=== PATIENT | female | born 1970 | race Caucasian/White ===

== ENCOUNTER 2021-10-25 18:17 | Emergency (ER) | payer OTHER, SELFPAY ==
[2021-10-25] VITALS (13 sets, daily range): BP systolic 167–184; BP diastolic 89–95; PULSE 82–97; RESP 14–32; TEMP 36.4; O2SAT 97–99
--- NOTE | ~2021-10-25 | XR_ITS ---
XR ankle LT 2V 10/25/2021 18:45 Indication: Left ankle pain after fall from porch Procedure: 2 views left ankle Comparison: 12/06/2004 Findings: There is a comminuted displaced distal fibular diaphyseal fracture. There is also a probabl e fracture involving the lateral margin of the distal tibia. There is lateral dislocation of the talu s with respect to the tibia. Moderate soft tissue swelling. There is a degenerative calcaneal entheso phyte. Impression: 1: Comminuted displaced and angulated distal fibular diaphyseal fracture. 2: Lateral dislocation of the talus with respect to the tibia with probable fracture of the lateral margin of the tibia. Reviewed, dictated and finalized at location [facility] Impression: 1: Comminuted displaced and angulated distal fibular diaphyseal fracture. 2: Lateral dislocation of the talus with respect to the tibia with probable fr acture of the lateral margin of the tibia.
--- NOTE | 2021-10-25 18:42 | ED.GENADULT ---
HPI - General Adult General Chief complaint: Extremity Injury, Lower <Carlos Alberto Sims PA-C - Last Filed: 10/25/21 20:10> Stated complaint: FALL- L ANKLE DEFORMITY <Carlos Alberto Sims PA-C - Last Filed: 10/25/21 20:10> Time Seen by Provider: 10/25/21 18:31 <Carlos Alberto Sims PA-C - Last Filed: 10/25/21 20:10> Source: patient <ANA Cardenas Last Filed: 10/25/21 20:10> Mode of arrival: EMS <Carlos Alberto Sims PA-C - Last Filed: 10/25/21 20:10> Limitations: no limitations <ANA Carednas Last Filed: 10/25/21 20:10> History of Present Illness HPI narrative: Patient is a 50-year-old female presented with chief complaint of injury to the left ankle that she sustained just prior to arrival. Patient reports that she thought she was on the last step but was not so she fell down 2 steps inverting her left ankle. Patient reports she has significant pain to the area. She states that her last meal was at noon when her last drink was approximately 2 hours ago. Patient reports prior injury to the left ankle but does not recall if it was a sprain or fracture. Patient states she is not up-to-date on her tetanus. Patient denies any allergies to any antibiotics. Patient has been on anticoagulants. Patient with history significant for hypertension, morbid obesity. Patient was given 100 mcg of fentanyl via EMS during transport. She reports the ankle is becoming increasingly more painful. Patient denies head impact or any other areas of injury. <ANA Cardenas Last Filed: 10/25/21 20:10> Related Data Allergies/adverse reactions: Allergies Allergy/AdvReac Type Severity Reaction Status Date / Time No Known Allergies Allergy Unknown Unverified 10/06/08 17:54 NKDA Allergy Unknown Uncoded 05/03/03 14:38 NKFA Allergy Unknown Uncoded 05/03/03 14:38 <ANA Cardenas Last Filed: 10/25/21 20:10> Review of Systems Review of Systems: CONSTITUTIONAL: Denies fever, chills, or sweats. EYES: Denies visual changes, redness, or discharge. ENT: Denies rhinorrhea, congestion, sore throat, or otalgia. CARDIOVASCULAR: Denies chest pain, palpitations, or edema. RESPIRATORY: Denies cough or dyspnea. GASTROINTESTINAL: Denies abdominal pain, nausea, vomiting, or diarrhea. GENITOURINARY: Denies dysuria or hematuria. SKIN: Open wound denies rash or itching. MUSCULOSKELETAL: Reports left ankle injury/deformity denies back pain, joint pain, or myalgia. NEUROLOGIC: Denies headache, numbness, dizziness, or weakness. PSYCHIATRIC: Denies anxiety or depression. <Carlos Alberto Sims PA-C - Last Filed: 10/25/21 20:10> Exam Narrative: GENERAL: Morbidly obese, shaking, appears to be in discomfort. HEAD: Normocephalic, atraumatic. EYES: PERRLA and EOMI. CHEST: Clear to auscultation. No respiratory distress. No wheezes rales or rhonchi HEART: Regular rate and rhythm. No murmur heard. Normal peripheral pulses. ABDOMEN: Soft, nontender, nondistended, normal active bowel sounds. EXTREMITIES: Left ankle obviously deformed- everted. Open wound to medial aspect. Not actively bleeding. Pulses strong and intact. No discomfort with proximal palpation. SKIN: Open wound to medial aspect of ankle. Warm, dry, no rash. NEURO: No focal deficits. Alert and oriented x3. PSYCH: Normal mood and affect. <Carlos Alberto Sims PA-C - Last Filed: 10/25/21 20:10> Course WELL LOGGING OPERATOR MUD ANALYSIS/PA Physician Supervision Patient presented via ambulance after a fall down two steps, with open talotibial dislocation, compound fibular fracture. Patient is neurovascularly intact. IV access is obtained, patient was given IV antibiotics, tetanus was updated, she was given pain medication. Patient is hypertensive, likely secondary to significant pain from the injury. Patient will be splinted for comfort after discussion with attending at [facility]. Patient is requesting to be transferred there. For this patient encounter, I reviewed the WELL LOGGING OPERATOR MUD ANALYSIS or PA tony
[2021-10-25] MEDS: HYDROmorphone HCL INJ (*CRX) 1 MG/ML SYR 0.5 MG IV PUSH (19:08)
[2021-10-25] MEDS: ONDANSETRON INJ 4 MG/2 ML VIAL IV PUSH (19:08)
[2021-10-25] MEDS: SODIUM CHLORIDE 0.9% IV 1,000 ML 999 ML IV CONT (19:10)
[2021-10-25] MEDS: ceFAZolin 2 GM/D5W 50 ML 2 GM/50 ML BAG IVPB (19:27)
[2021-10-25] MEDS: TETANUS,DIPHTHERIA,AC PERTUSSIS ADULT (0.5 ML) BOOSTRIX IM (19:27)
[2021-10-25 19:28] LABS: Basophils Absolute Auto 0.1 K/mm3 (0.0-0.1); Basophils Percent Auto 0.4 % (0.2-1.2); Eosinophils Absolute Auto 0.1 K/mm3 (0-0.3); Eosinophils Percent Auto 0.3 % (0-4.4); Hematocrit 48.6 % (37.0-47.0); Hemoglobin 14.9 g/dL (12.0-15.0); Immature Granulocyte Absolute 0.19 K/mm3 (0.00-0.031); Immature Granulocyte Percent A 1.1 % (0-0.5); Lymphocytes Absolute Auto 1.43 K/mm3 (0.9-3.2); Mean Corpuscular HGB Conc 30.7 g/dl (32-36); Mean Corpuscular Hemoglobin 25.6 pg (26-34); Mean Corpuscular Volume 83.4 fl (80-100); Mean Platelet Volume 10.9 fl (7.4-10.4); Monocytes Percent Auto 5.3 % (2.6-8.5); Neutrophils Absolute Auto 15.2 K/mm3 (1.3-6.7); Neutrophils Percent Auto 84.9 % (45.5-73.1); Platelet Count Result 335 k/mm3 (150-375); Red Blood Count 5.83 M/mm3 (4.2-5.4); Red Cell Distribution Width 19.3 % (11.5-14.5); White Blood Count 17.9 K/mm3 (4.5-10.0)
[2021-10-25 19:32] LABS: Alanine Aminotransferase 30 U/L (4-35); Albumin Level 4.3 g/dL (3.5-5.1); Alkaline Phosphatase 143 U/L (38-126); Anion Gap 5 mmol/L (8-16); Aspartate Amino Transferase 24 U/L (14-36); Bilirubin,Total 0.4 mg/dL (0.2-1.3); Blood Urea Nitrogen 12 mg/dL (7-17); Calcium 9.2 mg/dL (8.4-10.2); Carbon Dioxide 32 mmol/L (22-30); Chloride 99 mmol/L (98-107); Estimated CRCL calculation 158 ml/min; Estimated Glomerular Filt Rate > 60; Glucose 134 mg/dL (65-110); Potassium 3.9 mmol/L (3.4-5.0); Sodium 136 mmol/L (137-145)
[2021-10-25 19:33] LABS: Prothrombin Time 12.9 Seconds (11.1-14.7)
[2021-10-25 19:44] LABS: EDCOVIDSCREEN Negative (Negative)
[2021-10-25] MEDS: HYDROmorphone HCL INJ (*CRX) 1 MG/ML SYR IV PUSH (20:24)
== END 2021-10-25 19:50 | disposition short-term general hospital (02) ==
PROVIDERS: Physician Assistant; Emergency Provider Emergency Medicine; PCP Family Medicine
DX: S82.892B Other fracture of left lower leg, initial encounter for open fracture type I or II (principal); S93.05XA Dislocation of left ankle joint, initial encounter; Z23 Encounter for immunization; Z20.822 Contact with and (suspected) exposure to COVID-19; E66.01 Morbid (severe) obesity due to excess calories; Z68.43 Body mass index [BMI] 50.0-59.9, adult; I10 Essential (primary) hypertension; W10.9XXA Fall (on) (from) unspecified stairs and steps, initial encounter
CPT/HCPCS: 29515; 36415; 73600; 80053; 85025; 85610; 85730; 87426; 90471; 90715; 96361; 96365; 96366; 96375; 96376; 99285; C9803; J0690; J1170; J2405; J7030

== ENCOUNTER 2024-05-03 07:13 | Emergency (ER) | payer OTHER, SELFPAY ==
[2024-05-03] VITALS (24 sets, daily range): BP systolic 152–213; BP diastolic 76–104; PULSE 66–88; RESP 16–20; TEMP 36.9; O2SAT 95–100
--- NOTE | ~2024-05-03 | CT_ITS ---
CT of the Abdomen and Pelvis: Indication: Abdominal wall abscess Technique: 2.5 mm axial scans were obtained through the abdomen and pelvis following intravenous adm inistration of 100 cc of Omnipaque 350. Dose reduction technique was used on this scan by utilizing a utomated exposure control and iterative reconstruction technique. The dose-length product (DLP) was 1 671.00 mGy-cm. Findings: Scans through the lung bases are unremarkable. The liver, spleen, pancreas, gallbladder, adrenals and kidneys are within normal limits. No evidence of aortic aneurysm. No lymphadenopathy. No bowel obstruction or bowel wall thickening. There is a 9.5 x 4.1 x 9.0 cm fluid collection in the anterior subcutaneous soft tissues with air-fluid level and a probable sinus tract extending to the s kin surface at the umbilical region. No intraperitoneal extension identified. Images through the pelvis were performed. Urinary bladder unremarkable. No pelvic mass seen. IUD in p lace. No ascites. Impression: 9.5 x 4.1 x 9.0 cm presumed abscess in the anterior subcutaneous soft tissues with large sinus tract extending to the skin surface at the umbilical region. No definite intraperitoneal extension. Correla te with physical exam. Reviewed, dictated and finalized at location . Impression: 9.5 x 4.1 x 9.0 cm presumed abscess in the anterior subcutaneous soft tissues w ith large sinus tract extending to the skin surface at the umbilical region. No definite intraperitoneal extension. Correlate with physical exam.
--- NOTE | 2024-05-03 07:47 | ED.GENADULT ---
HPI - General Adult General Chief complaint: Recheck/Abnormal Lab/Rx Stated complaint: surgical wound (hernia surgery 2 mos ago - [place]) Time Seen by Provider: 05/03/24 07:18 History of Present Illness HPI narrative: 53-year-old female presenting emergency department for evaluation of a draining abdominal wall abscess. Patient had ventral hernia repair on February 28 at [facility]. Patient states over last few days she noticed she had what looked like a blister at the lower aspect of the incision. Patient was going to call her surgeon today for follow-up. The abscess began spontaneously draining today. Patient did report increased abdominal pressure but states this does feel improved with the abscess draining. Related Data Allergies Allergy/AdvReac Type Severity Reaction Status Date / Time No Known Allergies Allergy Unknown Verified 05/03/24 07:19 Review of Systems Review of Systems: All systems reviewed & are unremarkable except as noted in HPI and below PMFSH Past Medical History Medical History (Updated 05/03/24 @ 18:31 by Stephen Torres MD) Generalized anxiety disorder Hypertension Prediabetes Surgical History Surgical History (Updated 03/10/24 @ 09:29 by REANNA Foster) History of myomectomy History of ventral hernia repair 02/29/2024 Family History Family History Father Diabetes mellitus Hypertension Mother Diabetes mellitus Heart disease Grandparent Cancer Social History Social History (Updated 03/08/24 @ 14:12 by Yuridia Olmedo MA) Smoking status: Never smoker Alcohol intake: never Substance use: never Substance use type: does not use Do You Feel Safe in your Home?: Yes Lack of Transportation: No Lack of Food: Never True Current Housing: I Have Housing Concerned About Future Housing: No Difficulty Paying Gas/Electric Bills: No Difficulty Paying for Meds: No Currently Unemployed: YES Education: High School Diploma/GED Difficulty w/ Childcare or Family Care: No Living arrangements: with family Occupation/Education: unemployed Gender identity (if verbalized by the patient): Female Sexual Orientation (if Verbalized by the Patient): Straight or Heterosexual Spiritual care concerns: No Exam Narrative: APPEARANCE: Well appearing, no pain, no distress, well-nourished. HEAD: normocephalic, atraumatic. EYES: PERRLA/EOMI, conjunctivae clear. NOSE: Normal no drainage EARS:TMS clear with good light reflex. THROAT: Pharynx clear, no exudate. NECK: Supple. No adenopathy, no masses. RESPIRATORY: Airway patent, respirations nonlabored. Clear to auscultation bilaterally, no rales, rhonchi, wheezing. CARDIOVASCULAR: Regular rate and rhythm without murmurs rubs or gallops. ABDOMINAL: Draining abdominal wall abscess MUSCULOSKELETAL: Moves all extremities. Strength/ROM intact, No edema, No calf tenderness. NEURO: Alert. Cranial nerves II through XII intact. Good gait. Good coordination SKIN: Warm, dry. Normal Color Course Course Emergency Course: Patient is awaiting transfer to [facility] Vital Signs Vital signs: Vital Signs Temperature 98.4 F 05/03/24 07:23 Pulse Rate 88 05/03/24 07:23 Respiratory Rate 20 05/03/24 07:23 Blood Pressure 210/103 H 05/03/24 07:23 Pulse Oximetry 99 05/03/24 07:23 Temperature 98.4 F 05/03/24 07:23 Pulse Rate 66 05/03/24 18:15 Respiratory Rate 19 05/03/24 18:15 Blood Pressure 158/82 H 05/03/24 18:15 Pulse Oximetry 97 05/03/24 18:15 Medical Decision Making MDM Narrative Medical decision making narrative: 53-year-old female presented to the emergency department for evaluation of feeling discharge from her abdominal wound. Blood and wound cultures were ordered. Patient had copious amounts feeling discharge from her abdominal wall abscess. CT scan did confirm a 9 x 5 x 9 cm abscess. I discussed case with Fredy and patient
[2024-05-03 07:48] LABS: Basophils Absolute Auto 0.2 K/mm3 (0.0-0.1); Basophils Percent Auto 0.9 % (0.2-1.2); Hematocrit 43.4 % (37.0-47.0); Hemoglobin 12.6 g/dL (12.0-15.0); Immature Granulocyte Percent A 4.7 % (0-0.5); Lactic Acid Reflex 1.8 mmol/L (0.7-2.0); Lymphocytes Percent Auto 9.9 % (18.3-44.2); Mean Corpuscular Hemoglobin 21.7 pg (26-34); Mean Corpuscular Volume 74.8 fl (80-100); Mean Platelet Volume 9.9 fl (7.4-10.4); Monocytes Absolute Auto 0.9 K/mm3 (0.1-0.6); Monocytes Percent Auto 4.4 % (2.6-8.5); Neutrophils Percent Auto 80.1 % (45.5-73.1); Platelet Count Result 633 k/mm3 (150-375); Red Cell Distribution Width 21.8 % (11.5-14.5); White Blood Count 21.2 K/mm3 (4.5-10.0)
[2024-05-03 07:50] LABS: Alanine Aminotransferase 61 U/L (6-35); Albumin Level 4.2 g/dL (3.5-5.1); Alkaline Phosphatase 139 U/L (38-126); Anion Gap 8 mmol/L (4-12); Aspartate Amino Transferase 45 U/L (14-36); Bilirubin,Total 0.6 mg/dL (0.2-1.3); Blood Urea Nitrogen 15 mg/dL (7-17); Calcium 8.9 mg/dL (8.4-10.2); Carbon Dioxide 30 mmol/L (22-30); Chloride 103 mmol/L (98-107); Estimated CRCL calculation 118 ml/min; Estimated Glomerular Filt Rate > 60; Glucose 132 mg/dL (65-110); Potassium 4.2 mmol/L (3.4-5.0); Sodium 141 mmol/L (137-145)
--- NOTE | 2024-05-03 07:50 | PC.NURSE ---
200 ml of purulent discharge suctioned from wound by ERP.
[2024-05-03 08:15] LABS: Hypochromasia 1+; Platelet Estimate Increased (Adequate)
[2024-05-03 08:16] LABS: Anisocytosis 1+; Microcytosis 1+ (NORMAL); Schistocytes None Seen
[2024-05-03] MEDS: hydroCHLOROthiazide 25 MG TABLET PO (11:40)
[2024-05-03] MEDS: lisinopriL 20 MG TABLET PO (11:40)
[2024-05-03] MEDS: PIPERACILLN/TAZ 3.375GM/NS50ML 3.375 GM/50 ML BAG IVPB ×2 (11:42→18:12)
--- NOTE | 2024-05-03 16:07 | PC.NURSE ---
CALLED FOR AN UPDATE ON A BED AT [facility]. NO BEDS AT THIS TIME.
== END 2024-05-04 00:03 | disposition short-term general hospital (02) ==
PROVIDERS: Emergency Provider Emergency Medicine; PCP Family Medicine
DX: L02.211 Cutaneous abscess of abdominal wall (principal); T81.41XA Infection following a procedure, superficial incisional surgical site, initial encounter; I10 Essential (primary) hypertension; R73.03 Prediabetes
CPT/HCPCS: 36415; 74177; 80053; 83605; 85025; 87040; 87070; 87075; 87081; 87181; 87205; 96365; 99285; A9270; J2543; Q9967

== ENCOUNTER 2025-06-01 14:03 | Outpatient (CLI) | payer OTHER, SELFPAY ==
--- NOTE | ~2025-06-01 | CT_ITS ---
CLINICAL INDICATION: Abdominal pain and hematuria COMPARISON: 05/03/2024. TECHNIQUE: Multiple contiguous axial images of the abdomen and pelvis were performed without the admi nistration of intravenous contrast The dose-length product (DLP) was 1804.58 mGy-cm. Automated exposure control and iterative reconstruction technique were employed. FINDINGS/OBSERVATIONS: Visualized lower thorax: The bilateral lung bases are clear. The heart is enlarged, without significant pericardial effusion. Small hiatal hernia is present. Liver: The liver demonstrates homogeneous attenuation and is enlarged measuring 20 cm in longitudinal dimens ion. Gallbladder and biliary system: The gallbladder is only minimally distended, and otherwise unremarkable. Pancreas: Limited evaluation of the pancreas secondary to the lack of intravenous contrast. Spleen: The spleen demonstrates homogeneous attenuation and is not enlarged. Kidneys: The contour of the bilateral kidneys is nodular with heterogeneous attenuation. Of the paren chyma. The remainder of the bilateral kidneys are otherwise unremarkable, without hydronephrosis or renal ca lculi. . Adrenal glands: Unremarkable. Gastrointestinal tract: Fecal stasis within the colon. Appendix: The appendix is not definitively visualized. However, no pericecal inflammatory change is identified suggest the presence of acute appendicitis. Vasculature: Unremarkable. Lymph nodes: No pathologically enlarged or morphologically suspicious lymph nodes within the retroperitoneum or at the root of the mesentery. Pelvic structures: The bladder is decompressed, limiting its evaluation. Intrauterine device is detected. The uterus is anteverted and anteflexed, and contains multiple calcifications suggesting fibroid dise ase. Body wall and musculoskeletal: Postoperative change at the level of the umbilicus. No significant degenerative disease within the lower thoracic or lumbosacral spine. IMPRESSION: Nodular contour of the bilateral kidneys, with surrounding inflammatory change. No hydronephrosis or renal calculi. The bladder is decompressed, limiting its evaluation. Intrauterine device in position. Hepatomegaly. Reviewed, dictated and finalized at location A.
--- OUTSIDE RECORDS SUMMARY | 2025-06-01 14:10 | XMS_ITS | Clinical Summary ---
Author Organization [facility] Address [address] [place] [id number] Care Team Providers Care Button Facing Machine Operator Name Role Phone Lupillo Crawley Primary Care Provider [phone] Allergies No known active allergies Medications ferrous sulfate CR 142 (45 Fe) MG Tab CR tablet Take 90 mg of iron by mouth 2 (two) times daily. Active vitamin D3, cholecalciferol, 75 MCG (3000 UT) Tab tablet Take 5,000 Units by mouth daily. Active lisinopril-hydro CHLOROthiazide 20-25 MG tablet Take 1 tablet by mouth daily. 01/31/2022 Active Active Problems Problem Noted Date Diagnosed Date Ankle syndesmosis disruption, left, initial enco unter 09/22/2024 Dislocation of ankle, open, left, initial encoun ter 09/22/2024 Displaced trimalleolar fract ure of left lower leg, initial encounter for open fracture type I or II 09/22/2024 History of leukocytosis 05/06/2024 Frequent stools 05/05/2024 At risk for malnutrition 05/04/2024 Encounter for medication review 05/04/2024 Abnormal uterine bleeding (AUB) 05/03/2024 Wound dehiscence 05/03/2024 Hypertension 03/02/2024 Discharge planning issues 03/02/2024 Acute post-operative pain 03/01/2024 Morbid obesity 03/01/2024 Herpes zoster 02/29/2024 Open left ankle fracture, type I or II, initial encounter 10/25/2021 Screening for colon cancer 07/09/2021 Overview (07/09/2021): Added automatically from request for surgery [id number] Iron deficiency anemia 07/09/2021 Overview (07/09/2021): Added automatically from request for surgery [id number] Iron deficiency anemia due to chronic blood loss 06/07/2021 Immunizations Immunization Administration Dates Next Due Tdap (Generic) 10/25/2021 Family History Medical History Relation Comments Diabetes Father Heart Disease Father Diabetes Mother Heart Disease Mother Relation Status Comments Father Alive Mother Alive Social History Tobacco Use Types Packs/Day Years Used Date Smoking Tobacco: Never Smokeless Tobacco: Never Tobacco Cessation:Counseling Given: No Alcohol Use Standard Drinks/Week Comments Never 0 (1 standard drink = 0.6 oz pur e alcohol) AUDIT-C Answer Date Recorded Q1: How often do you have a drink containing alc ohol? Never 02/09/2021 Average Number of Drinks Not on file Frequency of Binge Drinking Not on file 12/2020 PHQ-2 Answer Date Recorded Patient Health Questionnaire-2 Score 0 09/22/2024 Comments No Sex and Gender Information Value Date Recorded Sex Assigned at Not on file Legal Sex Female 8:25 PM CDT Gender Identity Not on file Sexual Orientation Not on file Last Filed Vital Signs Vital Sign Reading Time Taken Comments Blood Pressure 167/109 09/22/2024 7:31 AM PROFESSOR OF KINESIOLOGY Pulse 86 09/22/2024 7:20 AM PROFESSOR OF KINESIOLOGY Temperature 37.6 C (99.6 F) 09/22/2024 7:20 AM PROFESSOR OF KINESIOLOGY Respiratory Rate 16 09/22/2024 7:20 AM PROFESSOR OF KINESIOLOGY Oxygen Saturation 97% 09/22/2024 7:20 AM PROFESSOR OF KINESIOLOGY Inhaled Oxygen Concentration - - Weight 165.6 kg (365 lb) 09/22/2024 7:20 AM PROFESSOR OF KINESIOLOGY Height 167.6 cm (5' 6) 09/22/2024 7:20 AM PROFESSOR OF KINESIOLOGY Body Mass Index 58.91 09/22/2024 7:20 AM PROFESSOR OF KINESIOLOGY Plan of Treatment Health Maintenance Due Date Last Done Comments Cervical Cancer Screening Pa p Smear (Age 30 to 64) Every 3 Years 1972 Colorectal Cancer Screening Colonoscopy (10 Years) 1972 Annual Physical 1975 Hepatitis C 1990 Hepatitis B Vaccines (1 of 3 - 19+ 3-dose series) 1991 Cervical Cancer Screening Pa p with HPV Testing (Age 30 to 64) Every 5 Years 2002 Cervical Cancer Screening with HPV 2002 Pneumococcal Vaccine: 50+ Ye ars (1 of 1 - PCV) 2022 Zoster Vaccines (1 of 2) 2022 Mammogram Screening 04/26/2023 04/26/2021 COVID-19 Vaccine (1 - 2023-2 5 season) 2024 PHQ-2 (Physician [place]) 11/10/2024 09/22/2024 DTaP, Tdap and Td Vaccines ( 2 - Td or Tdap) 10/25/2031 10/25/2021 Meningococcal B Vaccine Aged Out No l onger eligible based on patient's age to complete this topic Meningococcal Vaccine Aged Out No roselia sachi eligible based on patient's age to complete this topic RSV Immunizations Under 20 Months Aged Out No longer eligible based on patient's age to complete this topic Medical Devices Implanted Type Area Heel Sander Rubber Device Identifier Shelf Expiration Date Model / Serial / Lot James James Left: Leg Description:Screws and james Procedures Procedure Name Priority Date/Time Associated Diagnosis Comments MG SCREENING W TREE JORY DIGI Routine 04/26/2021 4:12 PM CDT Breast cancer screening by mammogram from Last 3 Months or Most Recently Relevant to Health Maintenance Results * MG SCREENING W TREE JORY DIGI (04/26/2021 4:12 PM CDT) Anatomical Region Laterality Modality Breast Bilateral Mammography 04/26/2021 5:26 PM CDT Impressions 04/26/2021 5:34 PM CDT IMPRESSION: No mammographic evidence of malignancy. . RECOMMENDATION: Routine ScreeningBilateral BI-RADS ACR BI-RADS 2 - BENIGN FINDING(S). Referred By: DOT ALANIZ Interpreted By: Stephen Honeycutt, 04/26/2021 5:26 PM Narrative 04/26/2021 5:34 PM CDT EXAMINATION: MG SCREENING W TREE JORY DIGI INDICATIONS: Screening TECHNIQUE: Digital full field CC and MLO screening mammography bilaterally to include 3-D Tomosynthesis technique. This study was read with the assistance of a computer-aided detection system. HISTORY: No reported personal or first degree family history of breast cancer. No reported prior breast procedure or current breast complaint. COMPARISON: None. Baseline examination TISSUE DENSITY: There are scattered areas of fibroglandular density. FINDINGS: Scattered typically benign rounded and rim calcifications bilaterally. No suspicious microcalcification, focal asymmetry, or mass. No architectural distortion. No axillary adenopathy. Dot Alaniz MD MAMMO Final Result from Last 3 Months or Most Recently Relevant to Health Maintenance Insurance Advance Directives * Full Code (Latest Code Status on File) Date Activated Date Inactivated Comments 04/05/2022 8:11 AM 04/05/2022 11:33 AM * Full Code Date Activated Date Inactivated Comments 02/15/2021 12:48 PM 02/15/2021 4:00 PM Care Teams Button Facing Machine Operator Relationship Specialty Start [place] [address] [place] [address] PCP - General Physician [employer] Integration Developer Medical 09/22/24
--- OUTSIDE RECORDS SUMMARY | 2025-06-01 14:10 | XMS_ITS | Clinical Summary ---
Author Organization [facility] Address [address] [place] [address] Care Team Providers Care Cocoa Roaster Name Role Phone Hugo Ledezma MD Primary Care Provider [phone] Allergies No known active allergies Medications lisinopriL (PRINIVIL,ZESTR IL) 20 mg tablet Take 1 tablet (20 mg total) by mouth daily 30 tablet 4 Active acetaminophen 500 mg capsule Take 2 capsules (1,000 mg total) by mouth 3 (three) times a day as needed for pain 30 tablet 4 Active Additional Information Patient not taking.Reported on 05/11/2024 ascorbic acid (VITAMIN C) 500 mg tablet,chewable Take 1 tablet/chew tab (500 mg total) by mouth 2 (two) times a day for 14 days 28 tablet/chew tab 4 Active multivitamin with folic acid 400 mcg tablet Take 1 tablet by mouth daily 30 tablet 4 Active zinc sulfate (ZINCATE) 50 mg zinc (220 mg) capsule Take 1 capsule (220 mg total) by mouth daily for 14 days 14 capsule 4 Active Active Problems Problem Noted Date Diagnosed Date History of leukocytosis 05/06/2024 Assessment & Plan (05/06/2024 9:27 AM CDT): 05/06 presented with elevated wbc iso skin/soft tissue infection, stable with abx coverage, chart reviewed and patient has had persistent leukocytosis since at least 2020 per care everywhere, patient states she's been seen by heme/onc and cleared about 2 years ago --- f/u outpatient with heme/onc to re-establish care for further evaluation given chronicity Frequent stools 05/05/2024 Assessment & Plan (05/06/2024 9:26 AM CDT): 05/05 patient reports frequent liquid stools, wbc 19 from 17, r/o cdiff 05/06 GDH+/toxin-, wbc unchanged, improvement of stool frequency, no need for additional pcr testing at this time Encounter for medication review 05/04/2024 Assessment & Plan (05/04/2024 9:27 AM CDT): 05/04 medications reviewed with home pharmacy and updated in ADMISSIONS tab At risk for malnutrition 05/04/2024 Assessment & Plan (05/06/2024 11:42 AM CDT): 05/04 appears well nourished, BMI 57, surveil nutrition labs, nutritional supplements + vitamins 05/05 labs not obtained, patient reports near 100% intake of meals served 05/06 ongoing diet tolerance 05/05 albumin 3, prealbumin 21 HTN (hypertension) 05/03/2024 Assessment & Plan (05/06/2024 9:27 AM CDT): - home regimen: lisinopril (last filled 03/2024), HCTZ (discharged 02/2024 with 30d supply, no active rx per pharmacy) - hydralazine PRN SBP > 180 05/04 lisinopril resumed 05/06 HDS, continue lisinopril on DC --- f/u with PCP for evaluation for resuming HCTZ Abnormal uterine bleeding (AUB) 05/03/2024 Assessment & Plan (05/03/2024 11:05 PM CDT): s/p myomectomy/IUD Morbid obesity 05/03/2024 Assessment & Plan (05/04/2024 9:11 AM CDT): 05/03 Body mass index is 57.76 kg/m . Wound dehiscence 05/03/2024 Assessment & Plan (05/06/2024 2:55 PM CDT): 02/29/24 OR ([facility]): Ventral hernia repair, primary closure, CAROL ANN x2 05/03 presented to [facility] ([facility]) with c/o erythema at midline incision x7d, then on 05/01 noted small non-tender bulge at midline rupture - described as purulent and pink tinged. CT with e/o rim enhancing fluid collection anterior abdominal wall. Transferred to [facility] for ongoing management. --- wound opened and washed out at bedside with saline. Packed with saline- soaked gauze 05/04 AFVSS, wbc 17, cultures in process, abx as below, CT A/P with PO contrast today r/o fistula, dressing changed - no e/o succus or stool and erythema resolved 05/05 AFVSS, wbc 19 from 17, cultures in process, abx as below, no intervention required per IR based on imaging yesterday - also negative for fistula, cavity probed this am and no e/o purulence 05/06 AFVSS, wbc 18.5, OSH cultures and [facility] cultures in process - pending pcr on staph aureus for delineation of abx coverage, wound unchanged and remains without purulence --- f/u [facility] 1 week for wound check CULTURES 05/03 OSH blood: NGTD 05/03 OSH wound culture: MSSA x2 (prelim) 05/04 abd wound: MSSA x2 (prelim) 05/04 abd wound fungal: NGTD ANTIBIOTICS 05/03 zosyn (OSH) 05/03-05/06 Cefepime 05/03-05/06 Vanc 05/03-05/10 Flagyl - one week from drainage 05/07-05/10 Bactrim - one week from drainage Hypertension 03/02/2024 Assessment & Plan (03/03/2024 1:02 PM CDT): 03/02 patient noted to be hypertensive in to the 190/100, asymptomatic hydralazine 10mg x1 03/03 SBP 200 this morning. Hydralazine 10 mg IV given. She was on lisinopril about a year ago and quit taking the medication. She was given 10 mg lisinopril. After researching old medical records it was determined she was on lisinopril 20 mg and HCTZ 25 mg daily about a year ago. -She was discharged with 1 month of lisinopril 20 mg and HCTZ 25 mg and will follow up with her PCP for ongoing blood pressure management. Discharge planning issues 03/02/2024 Assessment & Plan (05/06/2024 9:25 AM CDT): 05/04 patient functionally independent at baseline, anticipate return to home without needs when medically stable; ADD 05/06 05/05 no change 05/06 Patient is medically stable for discharge, SW/CM updated. Assessment & Plan (03/03/2024 1:00 PM CDT): 03/02 NG removed, diet advanced, likely able to discharge home 03/02 03/03 Tolerating regular diet, discharging home. Acute post-operative pain 03/01/2024 Assessment & Plan (03/03/2024 1:00 PM CDT): Continue with binder; PRN Dilaudid push 03/03 Pain well controlled, transitioned to oral oxycodone and tylenol as needed. Discharging with oxycodone 10 tabs. Morbid obesity 03/01/2024 Assessment & Plan (03/01/2024 1:43 PM CDT): BMI 62.53 Shingles 02/29/2024 Assessment & Plan (03/03/2024 1:03 PM CDT): Currently being treated for shingles infection. Continue acyclovir through 03/01 No further treatment needed at discharge. Resolved Problems Problem Noted Date Diagnosed Date Resolved Date Ventral hernia with bowel obstruction 02/29/2024 03/25/2024 Assessment & Plan (03/03/2024 1:04 PM CDT): 02/28 OR for primary ventral hernia repair, no bowel resection needed. NPO, NGT, pain control, mIVF, AM labs, abdominal binder, PT/OT 03/01 POD1 drains x2 serosanguinous output, NPO, NG minimal output, ARBF, binder ordered 03/02 POD 2 drains unchanged, ambulating, NG clamp trial if pass will advance to CLD and ADAT 03/03 Tolerating a regular diet and had several BM's. Midline incision with clean lena. CAROL ANN drain x2 with SS drainage. She will discharge home today with CAROL ANN drains and will follow up with [facility] for drain and staple removal. 02/28 Blood cultures: NGTD- preliminary at discharge. Medical History Medical History Date Comments Hypertension Social History Tobacco Use Types Packs/Day Years Used Date Smoking Tobacco: Never [facility] Kashlessities Answer Date Recorded In the past 12 months has [employer], gas, oil, or water [employer] threatened to shut off services in your home? No 05/06/2024 Humiliation, Afraid, Rape, and Kick questionnair e Answer Date Recorded Within the last year, have y ou been afraid of your partner or ex-partner? Patient declined 05/05/2024 Within the last year, have y ou been humiliated or emotionally abused in other ways by your partner or ex-partner? Patient declined 05/05/2024 Within the last year, have y ou been kicked, hit, slapped, or otherwise physically hurt by your partner or ex-partner? Patient declined 05/05/2024 Within the last year, have y ou been raped or forced to have any kind of sexual activity by your partner or ex-partner? Patient declined 05/05/2024 AUDIT-C Answer Date Recorded Q1: How often do you have a drink containing alcohol? Never 05/11/2024 Q2: How many drinks containi ng alcohol do you have on a typical day when you are drinking? Patient does not drink Q3: How often do you have si x or more drinks on one occasion? Never 05/11/2024 Overall Financial Resource Strain (CARDIA) Answe r Date Recorded How hard is it for you to pa y for the very basics like food, housing, medical care, and heating? Not hard at all 05/06/2024 PHQ-2 Answer Date Recorded PHQ-2 Total Score (If total score is 3 or more points, staff should administer the PHQ-9) 0 02/29/2024 [facility] - Occupational Stress Questionnaire Answer Date Recorded Do you feel stress - tense, restless, nervous, or anxious, or unable to sleep at night because your mind is troubled all the time - these days? Not at all 05/06/2024 Hunger Vital Sign Answer Date Recorded Within the past 12 months, y ou worried that your food would run out before you got the money to buy more. Never true 05/06/20 24 Within the past 12 months, t he food you bought just didn't last and you didn't have money to get more. Never true 05/06/2024 PRAPARE - Transportation Answer Date Re corded In the past 12 months, has l ack of transportation kept you from medical appointments or from getting medications? No 04/11 In the past 12 months, has l ack of transportation kept you from meetings, work, or from getting things needed for daily living? No 05/06/2024 PHQ-9 Answer Date Recorded PHQ-9 Total Score 0 02/29/2024 Housing Stability Vital Sign Answer Francis e Recorded In the last 12 months, was t here a time when you were not able to pay the mortgage or rent on time? No 05/06/2024 Number of Times Moved in the Last Year Not on fi le 05/06/2024 At any time in the past 12 m [facility], were you homeless or living in a long term (including now)? No 05/06/2024 Personal Safety Answer Date Recorded Have you ever been in or are you currently in a harmful physical or emotional relationship or is someone making you feel afraid or unsafe? 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 provider notified Pulse 87 05/11/2024 1:05 PM CDT Temperature 36.8 C (98.3 F) 05/11/2024 1:05 PM CDT Respiratory Rate 18 05/06/2024 11:1 5 AM CDT Oxygen Saturation 97% 05/11/2024 1:0 5 PM CDT Inhaled Oxygen Concentration - - Weight 169.1 kg (372 lb 12.8 oz) 05/11/2024 1:05 PM CDT Height 170.7 cm (5' 7.2) 05/04/2024 1: 25 AM CDT Body Mass Index 58.04 05/04/2024 1:25 AM CDT Plan of Treatment Health Maintenance Due Date Last Done Comments Cervical Cancer Screening 1972 Colon Cancer Screening-Colonoscopy 1972 Hepatitis C Screening 1972 Hepatitis B Screening 1990 Regular Well Visit/Exam 18-64 1990 Breast Cancer Screening-Mammogram 04/26/2022 04/26/2021, 04/26/2021 Zoster Vaccine (1 of 2) 2022 Depression Screening 02/28/2025 02/29/2024, 02/29/2024 Influenza Vaccine (#1) 2025 DTaP/Tdap/Td Vaccine (2 - Td or Tdap) 10/25/2031 10/25/2021 Pneumococcal vaccine <65 Aged Out No longer eligible based on patient's age to complete this topic Insurance [facility] Address[facility] [address] [place] [address] R [facility] Address: [address] [address] Advance Directives For more information, please contact: [phone] * Full Code (Latest Code Status on File) Date Activated Date Inactivated Comments 05/04/2024 1:54 AM 05/06/2024 6:44 PM * Full Code Date Activated Date Inactivated Comments 02/29/2024 4:58 PM 03/03/2024 6:42 PM Care Teams Cocoa Roaster Relationship Specialty Start Date End Date Hugo Ledezma MD [address] [place] [id number] PCP - General Family Medicine 02/29/24
--- OUTSIDE RECORDS SUMMARY | 2025-06-01 14:10 | XMS_ITS | Encounter Summary ---
Author Organization [facility] Address [address] [place] [address] Care Team Providers Care Chyron Operator Name Role Phone Hugo Ledezma MD Primary Care Provider [phone] Lupillo Crawley Primary Care Provider [phone] Encounter Details Date Type Department Care Team (Late st Contact Info) Description 02/13/2021 Prep for Procedure [facility] [address] [place], [place] [id number] Dot Shaw MD [address] [place] [address] Social History Tobacco Use Types Packs/Day Years Used Date Smoking Tobacco: Never Smokeless Tobacco: Never Alcohol Use Standard Drinks/Week Comments Never 0 (1 standard drink = 0.6 oz pur e alcohol) AUDIT-C Answer Date Recorded Q1: How often do you have a drink containing alc ohol? Never 02/09/2021 Average Number of Drinks Not on file 021 Frequency of Binge Drinking Not on file 12/2020 Comments No Sex and Gender Information Value Date Recorded Sex Assigned at Not on file Legal Sex Female 8:25 PM CDT Gender Identity Not on file Sexual Orientation Not on file COVID-19 Exposure Response Date Recorded In the last month, have you been in contact with someone who was confirmed or suspected to have Coronavirus / COVID-19? No / Unsure 02/15/2021 10:59 AM CDT documented as of this encounter Plan of Treatment Not on file documented as of this encounter Results * PRE-SURGICAL/PRE-PROCEDURE CORONAVIRUS (COVID 19) (02/13/2021 12:42 PM CDT) CORONAVIRUS SARS COV 2 PCR (RESP) NOT DETECTED NOT DETECTED 02/14/2021 5:36 PM CDT [facility] Comment: A Not Detected (negative) test result for this test means that SARS- CoV-2 RNA was not present in the specimen above the limit of detection. A negative result does not rule out the possibility of COVID-19 and should not be used as the sole basis for treatment or patient management decisions. If COVID-19 is still suspected, based on exposure history together with other clinical findings, re-testing should be considered in consultation with public health authorities. Laboratory test results should always be considered in the context of clinical observations and epidemiological data in making a final diagnosis and patient management decisions. Please review the Fact Sheets and FDA authorized labeling available for health care providers and patients using the following websites: [email or web address]/home/Covid-19/HCP/[facility]/fact- sheet.html [email or web address]/home/Covid-19/Patients/ [facility]/fact-sheet.html This test has been authorized by the FDA under an Emergency Use Authorization (EUA) for use by authorized laboratories. Due to the current public health emergency, [facility] is receiving a high volume of samples from a wide variety of swabs and media for COVID-19 testing. In order to serve patients during this public health crisis, samples from appropriate clinical sources are being tested. Negative test results derived from specimens received in non-commercially manufactured viral collection and transport media, or in media and sample collection kits not yet authorized by FDA for COVID-19 testing should be cautiously evaluated and the patient potentially subjected to extra precautions such as additional clinical monitoring, including collection of an additional specimen. Methodology: Nucleic Acid Amplification Test (NAAT) includes RT-PCR or TMA Additional information about COVID-19 can be found at the [facility] website: www.[employer].com/Covid19. Test performed at [facility] [address] [place] [address] Director: COURTNEY LOPEZ DO,MPH FIRST TEST UNKNOWN 02/13/2021 12:37 PM CDT [facility] EMPLOYED IN HEALTHCARE NO 02/13/2021 12:37 PM CDT [facility] SYMPTOMATIC DEFINED BY CDC NO 02/13/2021 12:37 PM CDT [facility] DATE OF SYMPTOM ONSET UNKNOWN 02/13/2021 12:44 PM CDT [facility] HOSPITALIZATION STATUS NO 02/13/2021 12:37 PM CDT [facility] PATIENT IN ICU NO 02/13/2021 12:37 PM CDT [facility] RESIDENT OF [facility] NO 02/13/2021 12:37 PM CDT [facility] NOT 02/13/2021 12:37 PM CDT [facility] PATIENT'S RACE WHITE OR 02/13/2021 12:37 PM CDT [facility] ETHNICITY NONHISPANIC 02/13/2021 12:37 PM CDT [facility] SOURCE (QST) NASOPHARYNGEAL SWAB 02/13/2021 12:37 PM CDT [facility] NASOPHARYNGEAL SWAB / Unknown 02/13/2021 12:42 PM CDT us Dot Shaw MD MICROBIOLOGY - GENERAL ORDERAB LES Final Result [facility] [address] [place] [address], [place] [phone] [facility] [address] [place] [address], [place] documented in this encounter Visit Diagnoses Diagnosis Pre-op testing- Primary Preoperative examination, unspecified documented in this encounter Additional Health Concerns Infection Onset Date Last Indicated Resolved Time COVID-19 Rule Out 02/13/2021 02/13/2021 02/14/2021 5:36 PM CDT COVID-19 Rule Out 07/15/2021 07/15/2021 07/16/2021 11:39 AM CDT COVID-19 Rule Out 04/02/2022 04/02/2022 04/03/2022 7:17 PM CDT documented as of this encounter Care Teams Chyron Operator Relationship Specialty Start Date End Date Hugo Ledezma MD [address] [place] [address] PCP - General FAMILY PRACTICE 02/09/21 09/21/24 [place] [address] [place] [address] PCP - General Physician Automotive Generator Repairer Medical 09/22/24 documented as of this encounter
--- OUTSIDE RECORDS SUMMARY | 2025-06-01 14:10 | XMS_ITS | Clinical Summary ---
Author Organization [facility] Address [address] [facility] [place] [address] Care Team Providers Care Window Unit Air Conditioning Mechanic Name Role Phone Hugo Ledezma MD Primary Care Provider Source Comments [facility],non-owned Affiliates and Associated Physician Practices is amultiple site organization consisting of ambulatory clinics and hospital sitesin [place], [place] and [place]. This disclosure is being madepursuant to the Care Everywhere program and may not contain all information available regarding this patient. Last updated 18.[facility] Allergies No known active allergies Medications * Be aware that medications may not be up to date on this document. Alwaysverify current medications with the patient. vitamin D3 (CHOLECALCIFER OL) 75 MCG (3000 UT) tablet Take 5,000 Units by mouth once daily Active ferrous sulfate 325 (65 FE) MG tablet Take 325 mg by mouth daily with breakfast Active lisinopril (PRINIVIL; ZESTRIL) 20 MG tablet Take 20 mg by mouth once daily 1 Active LORazepam (ATIVAN) 0.5 MG tablet Take 0.5 mg by mouth every 6 hours as needed 1 Active nitrofurantoin monohyd macro crystals (MACROBID) 100 MG capsule 1 Active sertraline (ZOLOFT) 50 MG tablet Take 50 mg by mouth once daily Active acetaminophen (TYLENOL) 325 MG tablet Take 2 (two) tablets by mouth every 6 hours Maximum allowable Acetaminophen amount = 4 Grams (4000 mg) / 24 hours. 48 tablet Active Active Problems Problem Noted Date Diagnosed Date Open left ankle fracture, type I or II, initial encounter 10/25/2021 Post-op pain Displaced trimalleolar fract ure of left lower leg, initial encounter for open fracture type I or II Ankle syndesmosis disruption, left, initial enco unter Dislocation of ankle, open, left, initial encoun ter Social History Tobacco Use Types Packs/Day Years Used Date Smoking Tobacco: Never Smokeless Tobacco: Never Alcohol Use Standard Drinks/Week Comments Not Currently 0 (1 standard drink = 0.6 oz pur e alcohol) AUDIT-C Answer Date Recorded Q1: How often do you have a drink containing alc ohol? Never 10/25/2021 Average Number of Drinks Not on file 021 Frequency of Binge Drinking Not on file 10/10 Comments No Sex and Gender Information Value Date Recorded Sex Assigned at Not on file Legal Sex Female 8:09 PM MANAGER RN CASE Gender Identity Not on file Sexual Orientation Not on file Last Filed Vital Signs Vital Sign Reading Time Taken Comments Blood Pressure 160/100 10/28/2021 7:44 AM MANAGER RN CASE Pulse 77 10/28/2021 7:44 AM MANAGER RN CASE Temperature 36.7 C (98.1 F) 10/28/2021 7:44 AM MANAGER RN CASE Respiratory Rate 16 10/28/2021 7:44 AM MANAGER RN CASE Oxygen Saturation 100% 10/28/2021 7:44 AM MANAGER RN CASE Inhaled Oxygen Concentration - - Weight 168.7 kg (372 lb) 11/07/2021 1:05 PM MANAGER RN CASE Height 167.6 cm (5' 6) 11/07/2021 1:05 PM MANAGER RN CASE Body Mass Index 60.04 11/07/2021 1:05 PM MANAGER RN CASE Plan of Treatment Health Maintenance Due Date Last Done Comments COLOGUARD (AGES 45-75) - COLON CA SCREENING 1972 COLON MONITORING 1972 COLONOSCOPY - COLON CA SCREENING 1972 CT COLONOGRAPHY - COLON CA SCREENING 1972 Colorectal Cancer Screening 1972 FIT - COLON CA SCREENING 1972 FLEX SIG - COLON CA SCREENING 1972 LIPID TESTING 1972 HIV SCREENING 1987 HEPATITIS C SCREENING 11/18/1990 DTAP/TDAP/TD VACCINES (1 - Tdap) 1991 HEPATITIS B VACCINE (1 of 3 - 19+ 3-dose series) 1991 PAP SMEAR 1993 PNEUMOCOCCAL VACCINE 50+ (1 of 1 - PCV) 2022 ZOSTER VACCINE (1 of 2) 2022 MAMMOGRAM 04/26/2023 04/26/2021 COVID-19 VACCINE (1 - 2023- season) 2024 DEPRESSION SCREENING 11/10/2024 INFLUENZA VACCINE (#1) 2025 SCREENING FOR DIABETES 02/27/2027 , 02/28/2024, 03/01/2022, Additional history exists HIB VACCINE Aged Out No longer eligi ble based on patient's age to complete this topic HPV VACCINE Aged Out No longer eligi ble based on patient's age to complete this topic MENINGOCOCCAL (Group B) VACCINE SHARED DECISION-MAKING Aged Out No longer eligible based on patient's age to complete this topic MENINGOCOCCAL GROUPS A/C/Y/W VACCINE Aged Out No longer eligible based on patient's age to complete this topic Medical Devices Implanted Type Area Auto Radiator Mechanic Device Identifier Shelf Expiration Date Model / Serial / Lot Screw 3.5mm 55mm Slf-Tap Cortx Evos Strl Implanted:Qty: 1 on 10/26/2021 by Main Garland MD at [facility] Left: Ankle [employer] [id number] / / Screw 3.5mm 48mm Slf-Tap Cortx Evos Strl Implanted:Qty: 1 on 10/26/2021 by Main Garland MD at [facility] Left: Ankle [employer] [id number] / / Screw 3.5mm 46mm Slf-Tap Cortx Evos Strl Implanted:Qty: 1 on 10/26/2021 by Main Garland MD at [facility] Left: Ankle [employer] [id number] / / Screw 3.5mm 12mm Slf-Tap Lck Evos Strl Implanted:Qty: 1 on 10/26/2021 by Main Garland MD at [facility] Left: Ankle [employer] [id number] / / Screw 3mm 38mm Dav Hdls Bone Implanted:Qty: 1 on 10/26/2021 by Main Garland MD at [facility] Left: Ankle [employer] [id number] / / Screw Implanted:Qty: 2 on 10/26/2021 by Main Garland MD at [facility] Left: Ankle [employer] [id number] / / Plate Implanted:Qty: 1 on 10/26/2021 by Main Garland MD at [facility] Left: Ankle [employer] [id number] / / Screw 3.5mm 12mm Slf-Tap Cortx Evos Strl Implanted:Qty: 3 on 10/26/2021 by Main Garland MD at [facility] Left: Ankle [employer] [id number] / / Screw 2.7mm 4.5mm 18mm T8 Slf-Tap Cortx Implanted:Qty: 2 on 10/26/2021 by Main Garland MD at [facility] Left: Ankle [employer] [id number] / / Screw 2.7mm 4.5mm 26mm T7 Slfret Scrdrvr Implanted:Qty: 1 on 10/26/2021 by Main Garland MD at [facility] Left: Ankle [employer] [id number] / / Screw 2.7mm 4.3mm 18mm T8 2mm Slf-Tap Implanted:Qty: 1 on 10/26/2021 by Main Garland MD at [facility] Left: Ankle [employer] [id number] / / Screw 2.7mm 4.5mm 15mm T8 Slf-Tap Cortx Implanted:Qty: 1 on 10/26/2021 by Main Garland MD at [facility] Left: Ankle [employer] [id number] / / Explanted Type Area Auto Radiator Mechanic Device Identifier Shelf Expiration Date Model / Serial / Lot Wire .9mm 150mm 2 End Troc Pnt Fx Explanted:Qty: 2 on 10/26/2021 by Main Garland MD at [facility] Left: Ankle [employer] [id number] / / Wire K 1.6mm 150mm Troc Pnt Ss Fx Strl Explanted:Qty: 2 on 10/26/2021 by Main Garland MD at [facility] Left: Ankle [employer] [id number] / / Procedures Procedure Name Priority Date/Time Associated Diagnosis Comments COMPREHENSIVE METABOLIC PANEL STAT 10/25/2021 10:29 PM MANAGER RN CASE from Last 3 Months or Most Recently Relevant to Health Maintenance Results * (ABNORMAL) COMPREHENSIVE METABOLIC PANEL (10/25/2021 10:29 PM MANAGER RN CASE) BUN 10 7 - 26 mg/dL 10/25/2021 10:56 PM [facility] Creatinine 0.59 0.56 - 0.96 mg/dL 10/25/2021 10:56 PM [facility] Sodium 139 136 - 145 mmol/L 10/25/2021 10:56 PM [facility] Potassium 4.0 3.5 - 4.5 mmol/L 10/25/2021 10:56 PM [facility] Chloride 102 98 - 107 mmol/L 10/25/2021 10:56 PM [facility] CO2 26 22 - 29 mmol/L 10/25/2021 10:56 PM [facility] Glucose 141(H) 70 - 115 mg/dL 10/25/2021 10:56 PM [facility] Calcium 8.9 8.4 - 10.2 mg/dL 10/25/2021 10:56 PM [facility] Protein Total 7.3 6.0 - 8.3 g/dL 10/25/2021 10:56 PM [facility] Albumin 3.1(L) 3.4 - 5.0 g/dL 10/25/2021 10:56 PM [facility] Bilirubin Total 0.4 0.2 - 1.2 mg/dL 10/25/2021 10:56 PM [facility] Alkaline Phosphatase 115 40 - 150 U/L 10/25/2021 10:56 PM [facility] ALT 24 5 - 55 U/L 10/25/2021 10:56 PM [facility] AST 13 5 - 34 U/L 10/25/2021 10:56 PM [facility] Anion Gap 15 8 - 18 10/25/2021 10:56 PM [facility] BUN/Creatinine Ratio 17 7 - 23 10/25/2021 10:56 PM [facility] Osmolality Calculated 289 270 - 300 mOsm/kg 10/25/2021 10:56 PM [facility] Albumin/Globulin Ratio 0.7(L) 1.1 - 2.3 10/25/2021 10:56 PM [facility] eGFR by CKD-EPI >90 >=90 mL/min/1.7 3 m2 10/25/2021 10:56 PM [facility] Blood BLOOD SPECIMEN / Unknown Venipuncture / Unknown 10/25/2021 10:29 PM [facility] 10/25/2021 10:33 PM [facility] Charles Jasmine MD LAB - CHEMISTRY ORDERABLES Final Result [facility] [address] [place] [address] [phone] from Last 3 Months or Most Recently Relevant to Health Maintenance Insurance CARE Advance Directives * Full Code (Latest Code Status on File) Date Activated Date Inactivated Comments 10/26/2021 12:57 AM 10/28/2021 7:18 PM Care Teams Window Unit Air Conditioning Mechanic Relationship Specialty Start Date End Date Hugo Ledezma MD [address] [place] [address] PCP - General Family Medicine 10/25/21
--- OUTSIDE RECORDS SUMMARY | 2025-06-01 14:10 | XMS_ITS | Encounter Summary ---
Author Organization [facility] Address [address] [place] [address] Care Team Providers Care Aids Nurse Name Role Phone Hugo Ledezma MD Primary Care Provider [phone] Lupillo Crawley Primary Care Provider Encounter Details Date Type Department Care Team (Late st Contact Info) Description 04/02/2022 Prep for Procedure [facility] Day Services [address] [place], [place] [address] Dot Shaw MD [address] [place], [place] [address] Social History Tobacco Use Types Packs/Day Years [...] Exposure Response Date Recorded In the last 10 days, have yo u been in contact with someone who was confirmed or suspected to have Coronavirus/COVID-19? No / Unsure 04/05/2022 6:21 AM CDT documented as of this encounter Functional Status * Calculated C-SSRS Risk Score (Lifetime/Recent) Answer Date of Assessment Author Status No Risk Indicated 04/05/2022 6:37 AM CDT Fidelina Deal RN Active * [place] Suicide Severity Rating Scale (Screener/Recent Self-Report) Question Answer Date of Assessment Author Status 1. Wish to be (Past 1 Month) No 04/05/2022 6:37 AM CDT Fidelina Deal RN Activ e 2. Non-Specific Active Suicidal Thoughts (Past 1 Month) No 04/05/2022 6:37 AM CDT Fidelina Deal RN Activ e 6. Suicidal Behavior (Lifetime) No 04/05/2022 6:37 AM CDT Fidelina Deal RN Activ e documented as of this encounter Plan of Treatment Not on file documented as of this encounter Results * PRE-SURGICAL/PRE-PROCEDURE CORONAVIRUS (COVID 19) (04/02/2022 2:41 PM CDT) SPECIMEN SOURCE NASAL 2:33 PM CDT [facility] CORONAVIRUS SARS COV 2 PCR (RESP) NEGATIVE NEGATIVE 04/03/2022 7:17 PM CDT [facility] Comment: THE SARS-CoV-2 TEST HAS BEEN AUTHORIZED BY THE FDA UNDER AN EUA FOR USE BY AUTHORIZED LABORATORIES. PERFORMED BY NUCLEIC ACID AMPLIFICATION PCR FIRST TEST NO 04/02/2022 2:33 PM CDT [facility] EMPLOYED IN HEALTHCARE NO 04/02/2022 2:33 PM CDT [facility] SYMPTOMATIC DEFINED BY CDC NO 04/02/2022 2:33 PM CDT [facility] HOSPITALIZATION STATUS NO 04/02/2022 2:33 PM CDT [facility] PATIENT IN ICU NO 04/02/2022 2:33 PM CDT [facility] NO 04/02/2022 2:33 PM CDT [facility] NOT 04/02/2022 2:33 PM CDT [facility] NASAL STRUCTURE / Unknown 04/02/2022 2:41 PM CDT us Dot Shaw MD MICROBIOLOGY - GENERAL ORDERAB LES Final Result [facility] [address] [place] [address], [place] [phone] [facility] [address] [place] [address], [place] [phone] documented in this encounter Visit Diagnoses Diagnosis Pre-op testing- Primary Preoperative examination, unspecified documented in this encounter Additional Health Concerns Infection Onset Date Last Indicated Resolved Time COVID-19 Rule Out 04/02/2022 04/02/2022 04/03/2022 7:17 PM CDT documented as of this encounter Care Teams Aids Nurse Relationship Specialty Start Date End Date Hugo Ledezma MD [address] [place] [address] PCP - General FAMILY PRACTICE 02/09/21 09/21/24 [place] [address] [place] [address] PCP - General Physician Warehouse Engineer Medical 09/22/24 documented as of this encounter
--- OUTSIDE RECORDS SUMMARY | 2025-06-01 14:10 | XMS_ITS | Referral Summary ---
Author Organization [facility] Address [address] [place] [address] Care Team Providers Care Block Hand Name Role Phone Hugo Ledezma MD Primary Care Provider [phone] Allergies No known active allergies Medications lisinopriL [...] fluid collection anterior abdominal wall. Transferred to [facility] for ongoing management. --- wound opened [...] 05/06 AFVSS, wbc 18.5, OSH cultures and [facility] cultures in process - pending pcr [...] ANN drains and will follow up with [facility] for drain and staple removal. 02/28 Blood cultures: NGTD- preliminary at discharge. Social History Tobacco Use Types Packs/Day Years Used Date Smoking Tobacco: Never [facility] [place] Answer Date Recorded In the past 12 months has [employer], gas, oil, or water [employer] threatened to shut off services in your [...] staff should administer the PHQ-9) 0 02/29/2024 [facility] [place] of Occupat ional Health - Occupational Stress [...] any time in the past 12 m [facility], were you homeless or living in a retirement (including now)? No 05/06/2024 Personal Safety Answer Date Recorded Have you ever been in or are you currently in a harmful physical or emotional relationship or is someone making you feel afraid or unsafe? Denies 05/04/2024 Comments No Sex and Gender Information Value Date Recorded Sex Assigned at Not on file Legal Sex Female 1:23 AM FAMILY NURSE Gender Identity Not on file Sexual Orientation [...] 05/04/2024 1:25 AM CDT Plan of Treatment Not on file Insurance [facility] HMO/PPO Address: [address] [place] [id number] [facility] [facility] HMO/PPO Address: [address] [address] [place] [address] Advance Directives For more information, please contact: [phone] * Full Code (Latest Code Status on File) Date Activated Date Inactivated Comments 05/04/2024 1:54 AM 05/06/2024 6:44 PM * Full Code Date Activated Date Inactivated Comments 02/29/2024 4:58 PM 03/03/2024 6:42 PM Care Teams Block Hand Relationship Specialty Start Date End Date Hugo Ledezma MD [address] [place] [address] PCP - General Family Medicine 02/29/24
--- OUTSIDE RECORDS SUMMARY | 2025-06-01 14:10 | XMS_ITS | Clinical Summary ---
Author Organization [facility] Address [address], [facility] [address] [place] [address] Phone Care Team Providers Care Hand Edger Name Role Phone Hugo Ledezma MD Primary Care Provider [phone] Celso Reyes MD Unavailable [phone] Allergies No known active allergies Medications ferrous sulfate 325 (65 Fe) MG Tablet Take 325 mg by mouth 2 times daily. Active Cholecalciferol (vitamin D) 10 MCG (400 UNIT) Tablet Take 25 mcg by mouth daily. Active lisinopril (PRINIVIL, ZESTRIL) 20 MG Tablet Take 20 mg by mouth daily. 06/07/2021 Active Active Problems Problem Noted Date Diagnosed Date Iron deficiency anemia due to chronic blood loss 06/07/2021 Family History Medical History Relation Name Comments Diabetes Father Heart Disease Father Hypertension Father Cancer Maternal Grandmother cervica l Diabetes Mother Heart Disease Mother Leukemia/Lymphoma Paternal Grandfather Cancer Paternal Grandmother cervica l Relation Name Status Comments Father Alive Maternal Grandmother Mother Alive Paternal Grandfather Paternal Grandmother Social History Tobacco Use Types Packs/Day Years Used Date Smoking Tobacco: Never Smokeless Tobacco: Never Alcohol Use Standard Drinks/Week Comments Not Currently 0 (1 standard drink = 0.6 oz pur e alcohol) PHQ-2 Answer Date Recorded Total Score - Questions 1-9 0 09/10 Comments Unknown Sex and Gender Information Value Date Recorded Sex Assigned at Not on file Legal Sex Female 9:52 AM CDT Gender Identity Not on file Sexual Orientation Not on file Last Filed Vital Signs Vital Sign Reading Time Taken Comments Blood Pressure 170/80 09/20/2021 8:48 AM WOOD VENEER TAPER Pulse 108 09/20/2021 8:48 AM WOOD VENEER TAPER Temperature 37 C (98.6 F) 09/20/2021 8:48 AM WOOD VENEER TAPER Respiratory Rate 18 09/20/2021 8:48 AM WOOD VENEER TAPER Oxygen Saturation 95% 09/20/2021 8:48 AM WOOD VENEER TAPER Inhaled Oxygen Concentration - - Weight 170 kg (374 lb 12.8 oz) 09/20/2021 8:48 A M WOOD VENEER TAPER Height 167.6 cm (5' 6) 09/20/2021 8:48 AM WOOD VENEER TAPER Body Mass Index 60.49 09/20/2021 8:48 AM WOOD VENEER TAPER Plan of Treatment Health Maintenance Due Date Last Done Comments Hepatitis C Virus (HCV) Screening 1972 Hepatitis B Immunization (1 of 3 - 19+ 3-dose series) 1991 Pap Smear 1993 Cervical Cancer Screening (CCS) 2002 HPV/Cotest 2002 Cologuard 2017 Colonoscopy 2017 Colorectal Cancer Screening 2017 Immunochemical Fecal Occult Blood 2017 Mammogram 04/26/2022 04/26/2021, 04/26/2021 Pneumococcal Immunization (5 0+ years) (1 of 1 - PCV) 2022 Zoster Immunization (1 of 2) 2022 SARS-COV-2 Immunization ( - 2023- season) 2024 Influenza Immunization (#1) 2025 Respiratory Syncytial Virus (RSV) Immunization (Adult) (1 - 1-dose 75+ series) 2047 Discussion re Starting/Frequency of Mammograms Discontinued 04/26/2021 DTaP/Tdap/Td Immunization Discontinued 10/25/2021 TdaP Immunization Completed 10/25/2021 Human Papillomavirus (HPV) Immunization Aged Out No longer eligible based on patient's age to complete this topic Meningococcal Immunization (ACWY) Aged Out No longer eligible based on patient's age to complete this topic Rotavirus Immunization Aged Out No lo nger eligible based on patient's age to complete this topic Insurance [facility] Care Teams Hand Edger Relationship Specialty Start Date End Date Hugo eLdezma MD [address] [place] [address] PCP - General Family Medicine 05/08/21 Celso Reyes MD [address] [place] [phone] Consulting Physician Oncology 05/08/21
--- OUTSIDE RECORDS SUMMARY | 2025-06-01 14:10 | XMS_ITS | Encounter Summary ---
Author Organization [facility] Address [address] [place] [address] Care Team Providers Care Supervisor Pleating Name Role Phone Hugo Ledezma MD Primary Care Provider [phone] Lupillo Crawley Primary Care Provider [phone] Encounter Details Date Type Department Care Team (Late st Contact Info) Description 07/11/2021 Prep for Procedure [facility] One Day [facility] [address] [place], [place] [id number] Valente Ziegler MD [address] [address] Social History Tobacco Use Types Packs/Day Years [...] have Coronavirus / COVID-19? No / Unsure 07/10/2021 1:57 PM CDT documented as of this encounter Plan of Treatment Not on file documented as of this encounter Results * PRE-SURGICAL/PRE-PROCEDURE CORONAVIRUS (COVID 19) (07/15/2021 7:58 AM CDT) SPECIMEN SOURCE NASAL 7:47 AM CDT [facility] CORONAVIRUS SARS COV 2 PCR (RESP) NEGATIVE NEGATIVE 07/16/2021 11:39 AM CDT [facility] Comment: THE SARS-CoV-2 TEST HAS BEEN AUTHORIZED BY THE FDA UNDER AN EUA FOR USE BY AUTHORIZED LABORATORIES. PERFORMED BY NUCLEIC ACID AMPLIFICATION PCR FIRST TEST UNKNOWN 07/15/2021 7:47 AM CDT [facility] EMPLOYED IN HEALTHCARE NO 07/15/2021 7:47 AM CDT [facility] SYMPTOMATIC DEFINED BY CDC NO 07/15/2021 7:47 AM CDT [facility] HOSPITALIZATION STATUS NO 07/15/2021 7:47 AM CDT [facility] PATIENT IN ICU NO 07/15/2021 7:47 AM CDT [facility] RESIDENT OF [facility] NO 07/15/2021 7:47 AM CDT [facility] NOT 07/15/2021 7:47 AM CDT [facility] NASAL STRUCTURE / Unknown 07/15/2021 7:58 AM CDT Valente Ziegler MD MICROBIOLOGY - GENERAL ORDERABLE S Final Result [facility] [address] [place] [address], [place] [phone] [facility] [address] [place] [address], [place] [phone] documented in this encounter Visit Diagnoses Diagnosis Preop testing- Primary Preoperative examination, unspecified documented in this encounter Additional Health Concerns Infection Onset Date Last Indicated Resolved Time COVID-19 Rule Out 07/15/2021 07/15/2021 07/16/2021 11:39 AM CDT COVID-19 Rule Out 04/02/2022 04/02/2022 04/03/2022 7:17 PM CDT documented as of this encounter Care Teams Supervisor Pleating Relationship Specialty Start Date End Date Hugo Ledezma MD [address] [place] [address] PCP - General FAMILY PRACTICE 02/09/21 09/21/24 [place] [address] [place] [address] PCP - General Physician Fishing Vessel Captain Medical 09/22/24 documented as of this encounter
--- OUTSIDE RECORDS SUMMARY | 2025-06-01 14:10 | XMS_ITS | Encounter Summary ---
Author Organization [facility] Address [address] [place] [address] Phone Care Team Providers Care Campus Executive Director Name Role Phone Hugo Ledezma MD Primary Care Provider [phone] Celso Reyes MD Unavailable [phone] Encounter Details Date Type Department Care Team (Late st Contact Info) Description 06/06/2021 Telephone [facility] [address] [facility] [address] [place] [address] Celso Reyes MD [address] [place] [address] Social History Tobacco Use Types Packs/Day Years Used Date Smoking Tobacco: Never Smokeless Tobacco: Never Alcohol Use Standard Drinks/Week Comments Not Currently 0 (1 standard drink = 0.6 oz pur e alcohol) PHQ-2 Answer Date Recorded Total Score - Questions 1-9 0 05/11 Comments Unknown Sex and Gender Information Value Date Recorded Sex Assigned at Not on file Legal Sex Female 9:52 AM CDT Gender Identity Not on file Sexual Orientation Not on file COVID-19 Exposure Response Date Recorded In the last month, have you been in contact with someone who was confirmed or suspected to have Coronavirus / COVID-19? No / Unsure 06/07/2021 7:51 AM CDT documented as of this encounter Miscellaneous Notes * Telephone Encounter - Antionette Bills - 06/06/2021 8:30 AM CDT WE HAVE BEEN TRYING TO GET THIS PT SET UP WITH DR CARMEN. HIS OFFICE WELL OUR OFFICE HAVE LEFT THE PT SEVERAL MESSAGE TO GET SCHEDULED. PATIENT IS ALSO GETTING A LETTER MAILED OUT FROM DR ESCALANTE OFFICE. DID YOU STILL WANT TO KEEP THIS ORDER AND KEEP TRYING TO GET PT SCHEDULED? PLEASE ADVISE. documented in this encounter Plan of Treatment Not on file documented as of this encounter Visit Diagnoses Not on filedocumented in this encounter Additional Health Concerns Assessment Noted Time PHQ-9 Depression Total Score: 0 05/10/20 8:56 AM CDT documented as of this encounter Care Teams Campus Executive Director Relationship Specialty Start Date End Date Hugo Ledezma MD [address] [place] [address] PCP - General Family Medicine 05/08/21 Celso Reyes MD [address] [place] [phone] Consulting Physician Oncology 05/08/21 documented as of this encounter
== END 2025-06-01 14:04 | disposition home or self-care (01) ==
PROVIDERS: PCP Family Medicine; Visit Provider Family Medicine
DX: R10.9 Unspecified abdominal pain (principal); R31.29 Other microscopic hematuria; R16.0 Hepatomegaly, not elsewhere classified; Z97.5 Presence of (intrauterine) contraceptive device
CPT/HCPCS: 74176